=== PATIENT | male | born 1950 | race Caucasian/White ===

== ENCOUNTER 2020-01-19 19:19 | Emergency (ER) | payer OTHER ==
[~2020-01-19] VITALS: Ht 182.9 cm; Wt 97.1 kg
[2020-01-19 19:26] VITALS: BP 142/95
[2020-01-19] MEDS ORDERED: NACL 0.9% 1,000 ML IV ONE ×2 (20:05→21:15)
[2020-01-19 20:51] LABS: BASOPHILS % (AUTO) 0.5 % (0.0-2.0); EOSINOPHILS # (AUTO) 0.2 K/uL (0-0.4); EOSINOPHILS % (AUTO) 2.8 % (0.0-4.0); HEMATOCRIT 47.1 % (36-52); HEMOGLOBIN 15.9 g/dL (12.0-18.0); LYMPHOCYTES # (AUTO) 2.9 K/uL (2.0-11.5); LYMPHOCYTES % (AUTO) 33.9 % (20.5-51.1); MEAN CORPUSCULAR HEMOGLOBIN 31 pg (27-31); MEAN CORPUSCULAR HGB CONC 34 g/dL (33-37); MEAN CORPUSCULAR VOLUME 93.3 fL (80-94); MONOCYTES # (AUTO) 0.8 K/uL (0.8-1.0); NEUTROPHILS # (AUTO) 4.5 K/uL (1.8-7.7); NEUTROPHILS % (AUTO) 52.8 % (42.2-75.2); PLATELET COUNT (AUTO) 251 K/uL (140-450); RED BLOOD CELL COUNT(AUTO) 5.05 MIL/uL (4.20-6.10); RED CELL DISTRIBUTION WIDTH 13.4 % (11.6-13.7); WHITE BLOOD COUNT (AUTO) 8.4 K/uL (4.8-10.8)
[2020-01-19 21:03] LABS: ALBUMIN 3.9 g/dL (3.4-5.0); ANION GAP 15.8 (8-16); CARBON DIOXIDE 24.2 mmol/L (21-32); CREATININE 1.1 mg/dL (0.6-1.3); TOTAL BILIRUBIN 0.9 mg/dL (0.0-1.0)
[2020-01-19] MEDS ORDERED: DOPPLER MC ONE (21:28)
[2020-01-19 22:13] VITALS: BP 144/72
== END 2020-01-19 22:12 | disposition home or self-care (01) ==
LOC: MED 19:19
DX: E11.65 Type 2 diabetes mellitus with hyperglycemia (principal); I10 Essential (primary) hypertension; Z90.49 Acquired absence of other specified parts of digestive tract
CPT/HCPCS: 36415; 80053; 82948; 85025; 96360; 96361; 99283; J7030; 81025

== ENCOUNTER 2020-01-24 19:14 | Emergency (ER) | payer OTHER ==
[~2020-01-24] VITALS: Ht 180.3 cm; Wt 90.3 kg
[2020-01-24 19:29] VITALS: BP 151/78
--- NOTE | 2020-01-24 19:47 | NUR ---
BIBS, STATES THAT HE HAS HAD POLYURIA X1DAY. HE STATES THAT HE IS DIABETIC AND TAKES METFORMIN BID. A/O X4. CITIZEN OF [place] SPEAKING. SKIN WARM, DRY, AND INTACT. NO FRUITY BREATH ODOR NOTED. WILL FOLLOW UP.
[2020-01-24] MEDS ORDERED: NACL 0.9% 1,000 ML IV ONE ×2 (19:50→20:50)
--- NOTE | 2020-01-24 19:56 | NUR ---
URINE COLLECTED AND TAKEN TO LAB
--- NOTE | 2020-01-24 20:10 | NUR ---
COLLEEN 1L STARTED AT THIS TIME, RUNNING WIDE OPEN.
[2020-01-24 20:12] LABS: BASOPHILS # (AUTO) 0.1 K/uL (0.00-0.22); BASOPHILS % (AUTO) 0.9 % (0.0-2.0); EOSINOPHILS # (AUTO) 0.4 K/uL (0-0.4); EOSINOPHILS % (AUTO) 5.8 % (0.0-4.0); HEMATOCRIT 46.6 % (36-52); HEMOGLOBIN 15.6 g/dL (12.0-18.0); LYMPHOCYTES # (AUTO) 2.3 K/uL (2.0-11.5); LYMPHOCYTES % (AUTO) 33.3 % (20.5-51.1); MEAN CORPUSCULAR HEMOGLOBIN 31 pg (27-31); MEAN CORPUSCULAR HGB CONC 33 g/dL (33-37); MEAN CORPUSCULAR VOLUME 93.6 fL (80-94); MONOCYTES # (AUTO) 0.7 K/uL (0.8-1.0); MONOCYTES % (AUTO) 9.4 % (1.7-9.3); NEUTROPHILS # (AUTO) 3.6 K/uL (1.8-7.7); NEUTROPHILS % (AUTO) 50.6 % (42.2-75.2); PLATELET COUNT (AUTO) 237 K/uL (140-450); RED BLOOD CELL COUNT(AUTO) 4.98 MIL/uL (4.20-6.10); RED CELL DISTRIBUTION WIDTH 13.6 % (11.6-13.7)
[2020-01-24 20:14] LABS: APPEARANCE,URINE CLEAR (CLEAR); BILIRUBIN,URINE NEGATIVE (NEGATIVE); BLOOD, URINE NEGATIVE (NEGATIVE); COLOR,URINE YELLOW (YELLOW); LEUKOCYTE ESTERASE ,URINE NEGATIVE (NEGATIVE); NITRITE, URINE NEGATIVE (NEGATIVE); UGLUCOSE 3+ (NEGATIVE)
[2020-01-24 20:24] LABS: ALBUMIN 3.8 g/dL (3.4-5.0); ANION GAP 11.4 (8-16); ASPARTATE AMINOTRANSFERASE 63 U/L (15-37); CARBON DIOXIDE 27.9 mmol/L (21-32); CHLORIDE 98 mmol/L (98-107); CREATININE 0.9 mg/dL (0.6-1.3); GFR ARICAN-AMERICAN 108 mL/min (>90); POTASSIUM 4.3 mmol/L (3.5-5.1); SODIUM SERUM 133 mmol/L (136-145); TOTAL BILIRUBIN 0.4 mg/dL (0.0-1.0); UREA NITROGEN, BLOOD 20 mg/dL (7-18)
[2020-01-24 20:29] LABS: GLUCOSE 406 mg/dL (74-106)
[2020-01-24 20:33] LABS: ACETONE, SERUM NEGATIVE (NEGATIVE)
[2020-01-24] MEDS ORDERED: BLOOD GLUCOSE MONITORING 1 DEV DEV FS ONE (20:50)
--- NOTE | 2020-01-24 20:57 | NUR ---
2ND BAG OF NS 1L STARTED AT THIS TIME, RUNNING WIDE OPEN.
[2020-01-24 22:00] VITALS: BP 151/78
--- NOTE | 2020-01-24 22:00 | NUR ---
Patient discharged with v/s stable. Written and verbal after care instructions given and explained. Patient verbalized understanding. Ambulatory with steady gait. All questions addressed prior to discharge. Advised to follow up with PMD.
--- NOTE | 2020-01-26 17:46 | NUR ---
LATE ENTRY -- CONFIRMED WITH RN NORMAL SALINE END TIME OF 9617 01/24/20.
--- NOTE | 2020-01-28 08:32 | NUR ---
LATE ENTRY -- CONFIRMED WITH RN 2ND NORMAL SALINE END TIME OF 2253 01/24/20.
== END 2020-01-24 22:00 | disposition home or self-care (01) ==
LOC: MED 19:14
DX: E11.65 Type 2 diabetes mellitus with hyperglycemia (principal)
CPT/HCPCS: 36415; 80053; 81003; 82009; 85025; 96360; 96361; 99283; J7030